=== PATIENT | female | born 1980 | race Caucasian/White ===

== ENCOUNTER 2016-07-17 03:42 | Emergency (ER) | payer MEDICAID ==
[~2016-07-17 03:42] MED LIST: ABILIFY10 MG; ABILIFY5 MG; ACID CONTROL20 MG PO; ADVAIR 1001 DISK W/D IH; ALBUTEROL17 GM; AMOXICILLIN500 M PO; CILOXAN 0.3% O2.5 ML OP; COMPAZINE10 M PO; DEPAKOTE ER250 MG; DEPAKOTE ER500 MG PO; DEPAKOTE500 MG; DEPAKOTE500 MG PO; DOLACET 5/500 C1 CAP; EFFEXOR XR150 MG PO; FAMOTIDINE10 MG PO; FAMOTIDINE40 M3 PO; FLEXERIL10 MG PO; FLEXERIL5 MG PO; FOLIC ACID1 MG; HYDROCODONE/APA1 TAB PO; IBUPROFEN800 MG PO; INVANZ1 G/VIA1 IV; KEFLEX500 MG PO; KEPPRA250 MG; KEPPRA250 MG PO; KEPPRA500 MG; KLONOPIN0.5 MG; KLONOPIN1 MG; LAMICTAL100 MG; LAMICTAL25 MG; LYRICA300 MG PO; LYRICA75 MG PO; LYRICA75 MG/CAP PO; NORCO 10/3251 TAB PO; NORCO 5/325 TAB1 TAB PO; NORCO 7.5/325 T1 TAB PO; OXYCODONE/APAP PO; PEPCID20 MG PO; PERCOCET 10 MG/1 TAB PO; PERCOCET 10/31 UDTAB PO; PERCOCET 5/3251 TAB; PERCOCET 5/3251 TAB PO; PHENERGAN25 MG PO; PRENATAL1 EACH PO; PRILOSEC20 MG PO; PROVENTIL HFA6.7 GM IH; PROZAC20 MG PO; SEROQUEL XR300 MG PO; SEROQUEL100 MG; SEROQUEL100 MG PO; SEROQUEL50 MG; SINGULAIR10 MG; VICODIN 5/500 T1 TAB PO; VISTARIL25 MG PO; XANAX0.5 MG PO; XANAX1 MG PO; ZITHROMAX250MG Z-PAK PO; ZOFRAN ODT4 MG PO; ZOFRAN ODT4 MG/UDTAB PO; [UNRECOGNIZED DRUG - OTHER] PO
[2016-07-17] MEDS ORDERED: NORCO 10-325 T1 EACH PO (04:17)
[2016-07-17] MEDS ORDERED: SEVELLA (04:18)
[2016-07-17 04:29] LABS: BASO % 0.2 % (0-2); EOS % 0.2 % (0-7); HCT-HEMATOCRIT 41.8 % (34.0-49.0); HGB-HEMOGLOBIN 14.5 gm/dl (12.0-15.5); IMMATURE GRANULOCYTES ABSOLUTE 0.01 tho/cmm (0-0.03); IMMATURE GRANULOCYTES PERCENT 0.2 % (0-0.3); LYMPH % 39.3 % (20-45); LYMPH ABSOLUTE COUNT 2.4 tho/cmm (0.8-4.5); MCH (MEAN CORPUSCULAR HGB) 30.5 pg (28.0-32.0); MCHC MEAN CORPUSCULAR HGB CONC 34.7 % (32.0-36.0); MEAN PLATELET VOLUME 9.8 cmc (9.4-12.4); MONO % 5.9 % (0-12); MONOCYTE ABSOLUTE COUNT 0.4 tho/cmm (0.0-1.2); NEUTROPHIL ABSOLUTE COUNT 3.3 tho/cmm (1.6-8.0); NEUTROPHIL-AUTOMATED 3.3 tho/cmm (1.6-8.0); NEUTROPHILS % 54.2 % (40-80); PLATELET COUNT 188 tho/cmm (150-450); RED BLOOD COUNT 4.75 mil/cmm (4.00-5.20); RED CELL DISTRIBUTION WIDTH 12.7 % (12.4-16.4); WHITE BLOOD COUNT 6.1 tho/cmm (4.0-10.0)
[2016-07-17 04:46] LABS: ALBUMIN 3.5 g/dl (3.5-5.0); ALKALINE PHOSPHATASE 67 U/L (33-138); ALT/SGPT 43 U/L (12-78); ANION GAP 14 mmol/L (0-20); AST/SGOT 29 U/L (10-40); BILIRUBIN,TOTAL 0.8 mg/dl (0-1.5); BLOOD UREA NITROGEN 9 mg/dl (6-24); CALCIUM 8.8 mg/dl (8.5-10.5); CARBON DIOXIDE-VENOUS 23 mmol/L (22-32); CHLORIDE 108 mmol/l (96-110); CREATININE 0.81 mg/dl (0.50-1.10); GLUCOSE 123 mg/dL (70-110); LIPASE 137 U/L (73-393); POTASSIUM 3.8 mmol/L (3.7-5.1); SODIUM 141 mmol/L (135-145); eGFR VALUE FOR BLACK >90 mL/Min
[2016-07-17 04:55] LABS: URINE BILIRUBIN NEGATIVE (NEG); URINE BLOOD NEGATIVE (NEG); URINE GLUCOSE (UA) NEGATIVE (NEG); URINE KETONE NEGATIVE (NEG); URINE LEUKOCYTE ESTERASE NEGATIVE (NEG); URINE NITRITE NEGATIVE (NEG); URINE PROTEIN NEGATIVE (NEG)
[2016-07-17 04:59] LABS: URINE APPEARANCE CLEAR; URINE COLOR YELLOW
[2016-07-17] MEDS ORDERED: SAVELLA100 M1 PO (05:13)
[2016-07-17] MEDS ORDERED: OMEPRAZOLE20 M3 PO (05:31)
== END 2016-07-17 05:45 ==
LOC: EDMED 03:42
PROVIDERS: Emergency Medicine
DX: K29.70 Gastritis, unspecified, without bleeding (principal); K21.9 Gastro-esophageal reflux disease without esophagitis; J44.9 Chronic obstructive pulmonary disease, unspecified; J45.909 Unspecified asthma, uncomplicated; Z90.49 Acquired absence of other specified parts of digestive tract; Z90.710 Acquired absence of both cervix and uterus; Z90.89 Acquired absence of other organs; F17.210 Nicotine dependence, cigarettes, uncomplicated; Z79.51 Long term (current) use of inhaled steroids; Z79.899 Other long term (current) drug therapy
CPT/HCPCS: C9113; G0480; J2270; J2405; J7030; Q9967